=== PATIENT | female | born 1985 | race American Indian/Alaskan Native ===

== ENCOUNTER 2021-02-06 13:16 | Outpatient (CLI) | payer MEDICAID | END 2021-02-06 13:17 | disposition home or self-care (01) | LOC: LAB 13:16 | PROVIDERS: ATTEND Obstetrics & Gynecology | DX: Z34.83 Encounter for supervision of other normal pregnancy, third trimester (principal); Z3A.00 Weeks of gestation of pregnancy not specified | CPT/HCPCS: 86850; 86900; 86901 ==